=== PATIENT | male | born 1985 | race Caucasian/White ===

== ENCOUNTER 2017-02-16 20:25 | Emergency (ER) | payer MEDICAID, OTHER ==
[2017-02-16] MEDS ORDERED: Acetaminophen 500 MG Tab PO ONE (20:46)
--- NOTE | 2017-02-16 20:51 | EDM.PDOC ---
ED HISTORY OF PRESENT ILLNESS - General Chief Complaint: Respiratory Problem Stated Complaint: FEVER COUGH RIBS HURT Time Seen by Provider: 02/16/17 20:35 Source: Reports: Patient History Limitations: Reports: No limitations - History of Present Illness INITIAL COMMENTS - FREE TEXT/NARRATIVE: 31 yo male presents with cough, fever, and chills since Thursday about 7 pm. Cough is minimally productive. Ribs hurt from coughing. Did not have a flu shot. 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 (see below) (none) - Related Data Allergies/ADRs: Allergies Allergy/AdvReac Type Severity Reaction Status Date / Time amoxicillin Allergy Cannot Verified 02/16/17 20:42 Remember Penicillins Allergy Cannot Verified 02/16/17 20:42 Remember Home Meds: Home Meds Hydrocodone/Acetaminophen [Lorcet 5-325 mg Tablet] 1 each PO Q4HR PRN #10 tablet 05/30/16 [Rx] Past Medical History - Past Health History Medical/Surgical History: Denies Medical/Surgical History Social & Family History - Tobacco Use Smoking Status *Q: Current Every Day Smoker Years of Tobacco use: 10 Packs/Tins Daily: 1 Second Hand Smoke Exposure: Yes - Alcohol Use Days Per Week of Alcohol Use: 0 - Recreational Drug Use Recreational Drug Use: No ED ROS GENERAL - Review of Systems Review Of Systems: See Below Constitutional: Reports: fever, chills, malaise. Denies: diaphoresis, decreased appetite, weight loss, weight gain HEENT: Reports: Rhinitis. Denies: Dental pain, Ear discharge, Ear pain, Eye discharge, Hearing loss, Nosebleed, Nose pain, Sinus problem, Throat pain, Vertigo, Vision change Respiratory: Reports: Pleuritic Chest Pain, Cough. Denies: Shortness of Breath , Wheezing, Sputum Cardiovascular: Reports: No symptoms Endocrine: Reports: no symptoms GI/Abdominal: Reports: No symptoms : Reports: no symptoms Musculoskeletal: Reports: no symptoms Skin: Reports: no symptoms Neurological: Reports: No Symptoms ED EXAM, GENERAL - Physical Exam Exam: See Below Exam Limited By: No limitations General Appearance: alert, WD/WN, no apparent distress Eye Exam: bilateral eye: conjunctival injection, normal inspection, PERRL Ears: normal external exam, normal canal, hearing grossly normal. No: normal TMs Ear Exam: right ear: erythema, TM red, left ear: TM normal (R TM injected with loss of light reflex), bilateral ear: auricle normal, canal normal Nose: no blood, nasal drainage, clear rhinorrhea. No: nasal deformity, nasal swelling, nasal flaring Throat/Mouth: Normal inspection, Normal lips, Normal teeth, Normal gums, Normal oropharynx, Normal voice, No airway compromise Head: atraumatic, normocephalic Neck: normal inspection, supple, non-tender Respiratory/Chest: no respiratory distress, lungs clear, normal breath sounds, no accessory muscle use Cardiovascular: regular rate, rhythm, no edema GI/Abdominal: soft, non tender, no distention Back Exam: normal inspection Extremities: normal inspection, normal range of motion, non-tender, no pedal edema Neurological: alert, oriented, CN II-XII intact, normal cognition, no motor/ sensory deficits Psychiatric: normal affect, normal mood Skin Exam: Warm, Dry, Intact, Normal color, No rash Lymphatic: no adenopathy Course - Vital Signs Text/Narrative:: Acetaminophen 1000 mg po Last Recorded V/S: Last Vital Signs Temp 38.3 C H 02/16/17 20:36 Pulse 107 H 02/16/17 20:36 Resp 16 02/16/17 20:36 BP 112/63 02/16/17 20:36 Pulse Ox 99 02/16/17 20:36 - Orders/Labs/Meds Meds: Medications Discontinued Medications Generic Name Dose Route Start Last Admin Trade Name Dandyq PRN Reason Stop Dose Admin Acetaminophen 1,000 mg 02/16/17 20:46 02/16/17 20:51 Tylenol Extra Strength PO 02/16/17 20:47 1,000 mg ONETIME ONE Administration Departure - Departure Time of Disposition: 21:20 Disposition: Home, Self-Care 01 Condition: good Clinical Impression: Influenza B Forms: ED Department Discharge
[2017-02-16] MEDS ORDERED: Oseltamivir 75 MG Cap PO ONE (21:16)
[2017-02-16 21:29] VITALS: BP 112/65
== END 2017-02-16 21:26 | disposition home or self-care (01) ==
LOC: FB.ED 20:25
DX: J10.1 Influenza due to other identified influenza virus with other respiratory manifestations (principal); F17.210 Nicotine dependence, cigarettes, uncomplicated; Z88.0 Allergy status to penicillin; Z88.1 Allergy status to other antibiotic agents
CPT/HCPCS: 87804; 99283; A9270

== ENCOUNTER 2022-02-03 15:22 | Emergency (ER) | payer SELFPAY ==
[2022-02-03] MEDS ORDERED: Lidocaine 1% 20 ML MDV INFILT ONE (15:23)
[2022-02-03 16:07] VITALS: BP 132/69; PULSE 69
== END 2022-02-03 16:10 | disposition home or self-care (01) ==
LOC: FB.ED 15:22
DX: S51.012A Laceration without foreign body of left elbow, initial encounter (principal); Z88.0 Allergy status to penicillin; W25.XXXA Contact with sharp glass, initial encounter
CPT/HCPCS: 12004; 99282-25

== ENCOUNTER 2024-01-24 19:15 | Emergency (ER) | payer SELFPAY ==
[2024-01-24] MEDS: Ketorolac 30 MG/ML SDV IM ONE (19:48)
[2024-01-24 21:56] VITALS: BP 147/87; PULSE 62
== END 2024-01-24 22:17 | disposition other institution (70) ==
LOC: FB.ED 19:15
DX: S02.109A Fracture of base of skull, unspecified side, initial encounter for closed fracture (principal); S06.36AA Traumatic hemorrhage of cerebrum, unspecified, with loss of consciousness status unknown, initial encounter; S02.31XA Fracture of orbital floor, right side, initial encounter for closed fracture; Z88.1 Allergy status to other antibiotic agents; Z88.0 Allergy status to penicillin; Z86.19 Personal history of other infectious and parasitic diseases; Y08.02XA Assault by strike by baseball bat, initial encounter
CPT/HCPCS: 70450; 72125; 96372; 99285; J1885; 99284